=== PATIENT | female | born 1965 | race Caucasian/White ===

== ENCOUNTER 2018-07-28 06:40 | Day surgery (SDC) | payer OTHER ==
[2018-07-28] MEDS ORDERED: NEOSTIGMINE 3 MG/3 ML SYRINGE (07:00)
[2018-07-28] MEDS ORDERED: PROPOFOL 200 MG INJ (07:00)
[2018-07-28] MEDS ORDERED: CEFAZOLIN 1 GM INJ (07:00)
[2018-07-28] MEDS ORDERED: GLYCOPYRROLATE 0.4 MG INJ (07:00)
[2018-07-28] MEDS: SOD CHLORIDE 0.9% 1,000 ML IV (07:52)
[2018-07-28] MEDS ORDERED: MIDAZOLAM 1 MG/ML 2 ML INJ (09:44)
[2018-07-28] MEDS ORDERED: LIDOCAINE 2% (SDV) 5 ML INJ (09:46)
[2018-07-28] MEDS ORDERED: ROCURONIUM 50 MG INJ (09:46)
[2018-07-28] MEDS ORDERED: PROPOFOL 20 ML (09:46)
[2018-07-28] MEDS ORDERED: SUCCINYLCHOLINE CHLORIDE 100 MG/5 ML SYG IV (09:46)
[2018-07-28] MEDS ORDERED: ROPIVACAINE 0.5 % 30 ML VIAL (09:47)
[2018-07-28] MEDS ORDERED: FENTAnyl 50 MCG/ML VIAL (09:47)
[2018-07-28] MEDS ORDERED: DIPHENHYDRAMINE 50 MG INJ IV (10:00)
[2018-07-28] MEDS ORDERED: MEPERIDINE 25 MG INJ IV (10:00)
[2018-07-28] MEDS ORDERED: HYDROmorphONE 1 MG/5 ML IV SYRINGE IV (10:00)
[2018-07-28] MEDS ORDERED: PROCHLORPERAZINE 10 MG INJ IV (10:00)
[2018-07-28] MEDS ORDERED: OXYCODONE/ACETAMINOPHEN (5/325) TAB PO (10:00)
[2018-07-28] MEDS: CEFAZOLIN 1 GM/50 ML (PMX) 50 ML IVPB (10:07)
[2018-07-28] MEDS ORDERED: DEXAMETHASONE 4 MG/ML 5 ML INJ (10:22)
[2018-07-28] MEDS ORDERED: ONDANSETRON 4 MG INJ (10:22)
[2018-07-28] MEDS ORDERED: FAMOTIDINE 20 MG INJ (10:23)
[2018-07-28] MEDS ORDERED: HYDROmorphONE 2 MG/ML SYG (10:24)
[2018-07-28] MEDS: HYDROmorphONE 1 MG/5 ML IV SYRINGE IV ×3 (11:03→11:49)
[2018-07-28] MEDS: ONDANSETRON 4 MG INJ IV (11:03)
[2018-07-28] MEDS: FENTAnyl 50 MCG/ML VIAL IV ×2 (11:04→11:16)
[2018-07-28] MEDS: HYDROCODONE/APAP (5/325) TAB PO (12:49)
[2018-07-28] MEDS: KETOROLAC 30 MG INJ IM (13:48)
== END 2018-07-28 16:54 | disposition home or self-care (01) ==
LOC: SDS 06:40
DX: K80.20 Calculus of gallbladder without cholecystitis without obstruction (principal); G40.909 Epilepsy, unspecified, not intractable, without status epilepticus
CPT/HCPCS: 47562; 84703; 88304